=== PATIENT | female | born 1985 ===

== ENCOUNTER 2022-06-22 04:27 | Day surgery (SDC) | payer OTHER ==
[2022-06-20 12:11] VITALS: BMI 30.1
[2022-06-22] MEDS ORDERED: ACETAMINOPHEN 1000 MG/100 ML BAG IVPB ONE (13:58)
[2022-06-22] MEDS ORDERED: DEXTROSE 5%-0.45% SALINE 1,000 ML IV SCH (14:00)
[2022-06-22] MEDS ORDERED: IBUPROFEN 800 MG/8 ML IJ IVPB SCH (14:00)
[2022-06-22] MEDS ORDERED: SCOPOLAMINE HYDROBROMIDE 1 PATCH PATCH.TD72 ONE (16:11)
[2022-06-22] MEDS ORDERED: MIDAZOLAM HCL 2 MG/2 ML SINGLE DOSE VIAL ONE (16:31)
[2022-06-22] MEDS ORDERED: ceFAZolin SODIUM 1 GM VIAL IVPB ONE (16:37)
[2022-06-22] MEDS ORDERED: PROPOFOL 20 ML ONE (16:40)
[2022-06-22] MEDS ORDERED: LIDOCAINE HCL 2% JELLY 10 ML CARTRIDGE TP ONE (16:47)
[2022-06-22] MEDS ORDERED: ONABOTULINUMTOXINA 200 UNIT/VIAL VIAL IM ONE (16:48)
[2022-06-22] MEDS ORDERED: PROMETHAZINE HCL 25 MG/1 ML VIAL IVPB PRN (17:01)
[2022-06-22] MEDS ORDERED: oxyCODONE HCL 5 MG TABLET PO PRN (17:01)
[2022-06-22] MEDS ORDERED: ONDANSETRON 4 MG/2 ML VIAL IVPUSH PRN (17:01)
[2022-06-22] MEDS ORDERED: ACETAMINOPHEN INJECTION 100 ML IVPB ONE (17:06)
[2022-06-22] MEDS ORDERED: IBUPROFEN 800 MG/8 ML IJ IVPB ONE (17:10)
[2022-06-22] MEDS ORDERED: LACTATED RINGERS SOLUTION 1,000 ML IV SCH (17:15)
[2022-06-22 19:06] VITALS: RESP 20; TEMP 97.9
[2022-06-22 19:12] VITALS: BP 134/72; PULSE 70
== END 2022-06-22 18:05 | disposition home or self-care (01) ==
LOC: JASU-SURG 04:27
PROVIDERS: ATTEND Urology
PROC: 3E0K8GC Introduction of Other Therapeutic Substance into Genitourinary Tract, Via Natural or Artificial Opening Endoscopic (ICD-10-PCS; principal; 2022-06-22 15:00)
DX: R32 Unspecified urinary incontinence (principal); R35.0 Frequency of micturition
CPT/HCPCS: 81025; 94760; J0585